=== PATIENT | male | born 1990 | race Two or more races ===

== ENCOUNTER 2018-07-05 20:57 | Emergency (ER) | payer MEDICAID ==
[~2018-07-05] VITALS: Ht 172.7 cm; Wt 65.8 kg
[2018-07-05] MEDS ORDERED: SULFAMETH/TRIMETH 800/160 MG TABLET ONE (21:22)
[2018-07-05] MEDS ORDERED: HYDROCODONE/APAP 5-325MG TABLET ONE (21:22)
--- NOTE | 2018-07-05 21:24 | NUR ---
Patient discharged to home in stable conditon. Written and verbal after care instructions given. Patient verbalizes understanding of instructions. Pt ambulated out of ER in steady gait with all belongings. VSS. NAD noted. Pt has friend to drive him home.
[2018-07-05 21:26] VITALS: BP 138/71
[2018-07-05] MEDS ORDERED: HYDROCODONE/APAP 5-325MG TABLET PO ONE (21:30)
[2018-07-05] MEDS ORDERED: SULFAMETH/TRIMETH 800/160 MG TABLET PO ONE (21:30)
== END 2018-07-05 21:26 | disposition home or self-care (01) ==
LOC: ER 21:03
DX: L05.91 Pilonidal cyst without abscess (principal); F17.200 Nicotine dependence, unspecified, uncomplicated
CPT/HCPCS: A4663